=== PATIENT | female | born 1970 | race Two or more races ===

== ENCOUNTER 2025-03-07 09:15 | Outpatient (OUT) | payer OTHER, MEDICAID, SELFPAY ==
--- NOTE | 2025-03-07 09:55 | MM_ITS ---
Patient Name: LEROY DE JESUS MR#: [id number] : 1970 Exam Date: 03/07/2025 Ordering Doctor: [facility] REPORT PROCEDURE: MM TOMOSYNTHESIS SCREENING BI COMPARISON: MG MAMM LT DIAG FU, 02/06/2024. MG MAMM LAKIA DIAG W CAD, 04/04/2023. INDICATIONS: screening mammogram for malignant neooplasm Calculator Name NCI Breast Cancer Risk Assessment Tool 5 Year Breast Cancer Risk 0.90% Lifetime Breast Cancer Risk 6.60% Personal Breast Cancer No Personal Ovarian Cancer No Treatments None Family Cancers Grandmother-maternal with breast cancer at age 52; Mother with cervical cancer at age 45. LOCATION: [facility] BREAST COMPOSITION: There are scattered areas of fibroglandular density. FINDINGS: RIGHT BREAST: There is a 7 mm focal asymmetry centrally in the right breast in the middle depth 5.8 cm from the nipple at the 12 o'clock position appeared scattered benign-appearing calcifications are present. LEFT BREAST: No significant suspicious finding. Benign-appearing calcifications are present. DIAGNOSTIC CATEGORY 0--INCOMPLETE: NEED ADDITIONAL IMAGING EVALUATION. RECOMMENDATIONS: ADDITIONAL MAMMOGRAPHIC VIEWS REQUIRED: RIGHT BREAST - follow-up with spot compressed views of the right breast and ultrasound if necessary is recommended. Sign report Dictated by: Oscar Handley MD on 03/07/2025 at 12:49 Approved by: Oscar Handley MD on 03/07/2025 at 13:11
== END 2025-03-07 09:16 | disposition home or self-care (01) ==
DX: Z12.31 Encounter for screening mammogram for malignant neoplasm of breast (principal); E11.40 Type 2 diabetes mellitus with diabetic neuropathy, unspecified; Z79.4 Long term (current) use of insulin; G47.33 Obstructive sleep apnea (adult) (pediatric); G62.9 Polyneuropathy, unspecified; I10 Essential (primary) hypertension; Z80.3 Family history of malignant neoplasm of breast; Z80.8 Family history of malignant neoplasm of other organs or systems; R92.8 Other abnormal and inconclusive findings on diagnostic imaging of breast
CPT/HCPCS: 77063; 77067

== ENCOUNTER 2025-04-29 08:55 | Outpatient (OUT) | payer OTHER, MEDICAID, SELFPAY ==
--- OUTSIDE RECORDS SUMMARY | 2025-04-16 19:09 | XMS_ITS | Continuity of Care Document ---
Author Organization [facility] Address [address] [place] [address] Phone Care Team Providers Care Commercial Marketing Specialist Name Role Phone Heather Garcia DO Primary Care Provider [phone] Heather Garcia DO Attending Provider [phone] Momo Cee MD Attending Provider Care Teams Patient Care Team Team Status: Active Member Role/Relationship Status Dates Heather Garcia DO Primary Care Provider Active Visit Care Team Team Status: Inactive Member Role/Relationship Status Dates Heather Garcia DO Primary Care Provider Active Start: February 24, 2025 End: February 24, 2025Heather Garcia DOAttscott ProviderActiveStart: February 24, 2025 End: February 24, 2025 Visit Care Team Team Status: Inactive Member Role/Relationship Status Dates Heather Garcia DO Primary Care Provider Active Start: April 16, 2025 End: April 16, 2025StRadha Ferrara ProviderActiveStart: April 16, 2025 End: April 16, 2025 Visit Care Team Team Status: Inactive Member Role/Relationship Status Dates Heather Garcia DO Primary Care Provider Active Start: April 16, 2025 End: April 16, 2025StRadha Ferrara ProviderActiveStart: April 16, 2025 End: April 16, 2025 Chief Complaint and Reason for Visit Chief Complaint Admit Date MCAWV February 24, 2025 2: 18pm Reason for Visit Admit Date CAD (coronary artery disease) February 2:18pm Essential hypertension February 24, 2025 2:18pm Hearing loss February 24, 2025 2: 18pm Medicare annual wellness visit, initial February 24, 2025 2:18pm Neuropathy February 24, 2025 2: 18pm PACHECO (obstructive sleep apnea) February 2:18pm Type 2 diabetes mellitus February 24 2:18pm Chronic stable angina April 16 1:57pm Essential hypertension April 16 1:57pm Hyperlipidemia April 16, 2025 1:57pm Occlusive coronary artery disease Novemb er 2024 1:57pm Type 2 diabetes mellitus April 16, 2025 1:57pm Health Concerns Concerns Start Date Continued weight management and exercise trajectory. Class II angina with known [employer]. Patient would be a candidate for yearly cardiac rehabilitation Allergies, Adverse Reactions, Alerts Allergen Type Severity Reaction Last Updated Verified Status acetaminophen Allergy Unknown anaphylaxis March 232024 2:03pm Yes Active oxycodone Allergy Unknown anaphylaxis March 2:03pm Yes Active pork derived (porcine) Allergy Unknown boils and fever April 16, 2025 2:03pm Yes Active Social History Smoking Status Status Start Date End Date Date of Observa tion Ex-smoker (finding) April 16, 2025 2:14pm Observation Status Observation Response Date of Response Legal Sex Female (finding) Sex Assigned At BirthFemalebary 1970 Family History Relationship Condition Age at Onset Recorded Date/T qi father Family history of lung cancer Unknown Diabetes mellitusUnknownDeceasedUnknownMalignant neoplasmUnknownfamily member Family history of other conditionUnknowngrandparentMalignant neoplasm of breast UnknownmotherHypertensionUnknownHeart diseaseUnknownDiabetes mellitusUnknown History of strokeUnknown Problems Active Problems Problem Diagnosis/Recorded Date Onset Date Stat us Medicare annual wellness visit, initial February 24 025 2:48pm Unknown Active PACHECO (obstructive sleep apnea) August 08, 2023 2:33pm Unknown Active Pain of left breast January 19, 2024 8:26am Unknown Active Hearing loss February 24, 2025 2:28pm Unknown Act conrad Dietary counseling and surveillance March 07, 2024 6:09am Unknown Active Type 2 diabetes mellitus January 19, 2024 8:26am Unkn own Active CAD (coronary artery disease) August 08, 2023 2:33pm Unknown Active Psychophysiologic insomnia August 08, 2023 2:41pm Unk nown Active Dermatitis January 19, 2024 8:58am Unknown Act conrad Hyperlipidemia August 08, 2023 2:33pm Unknown Ac tive Neuropathy August 08, 2023 2:33pm Unknown Acti ve Restless leg syndrome August 08, 2023 2:40pm Unknown Active Essential hypertension August 08, 2023 2:33pm Unknown Active Chronic stable angina August 08, 2023 2:35pm Unknown Active Abnormal mammogram March 11, 2025 7:05am Unknown Active History of stroke August 08, 2023 2:35pm Unknown Active Occlusive coronary artery disease April 16, 2025 2:44pm Unknown Active Medications Medication Status Dose Units Route Directions Qty Days Refills S tart Date Stop Date End Date Reason(s) Instructions Adherence Dulaglutide (Trulicity) 4.5 mg/0.5 mL pen injector Discontinued 4.5 MG SUBCUT every week 2 5March 2023 11:00pmAugust 2023 5:54pmMetformin 500 mg tablet Dcmzimlxrbgh525DDWEKpjak tplhw7636Krob 2023 1:55pmOctober 2023 8:44am Prazosin 1 mg capsuleDiscontinued0.ROUTE.BHQNHUE733Pomlgw 5th, 2024 10:33am February 22, 2024 8:44amTAKE 1 TABLET BY MOUTH ONCE DAILY AT BEDTIMEAtorvastatin 80 mg tabletDiscontinued0.ROUTE.PBKWPQU727Lngknz 2023 10:33amOct2023 8:44amTAKE 1 TABLET BY MOUTH ONCE DAILYPioglitazone 45 mg tablet Lbnlvnnwfwcz27OAJUIgvvy173Ifxiqj 26th, 2024 7:05amNovember 2023 12:18pm Metformin 500 mg sszuewFfvurz585UESKPozfd vwwnk7431Euuhpdm 3rd, 2024 8:44am UnknownPrazosin 1 mg capsuleDiscontinued0.ROUTE.SWZMIPB171Ftcdmng 2023 8:44amJanuary 2024 9:11amTAKE 1 TABLET BY MOUTH ONCE DAILY AT BEDTIME Atorvastatin 80 mg tabletActive0.ROUTE.WWROAEZ742Hfidfhj 2023 8:44amTAKE 1 TABLET BY MOUTH ONCE DAILYUnknownPioglitazone 45 mg viouttQfpvolvmshda49OJGN Gglon931Olptjide 2023 12:18pmMay 2024 9:44amPrazosin 1 mg capsule Discontinued0.ROUTE.RROKPSU915Umchhlx 2024 9:11amApril 2024 6:38amTAKE 1 TABLET BY MOUTH ONCE DAILY AT BEDTIMEInsulin Glargine (Lantus Solostar U-100 Insulin) 100 unit/mL (3 mL) insulin bpkPyzmuckjygki55DTDDAHZYDNMrwxr200Iesdw 2024 12:02pmApril 2024 6:48amPrazosin 1 mg capsuleDiscontinued0.ROUTE .SGZCGAA729Giecd 2024 6:38amJuly 2024 11:17amTAKE 1 TABLET BY MOUTH ONCE DAILY AT BEDTIMEErtugliflozin (Steglatro) 15 mg oyeoqtVemccq75NIYCZqhir921 September 10, 2024 6:47amUnknownInsulin Glargine (Lantus Solostar U-100 Insulin) 100 unit/mL (3 mL) insulin ixvPglhzvdsudqi91ODUUVQHUALLhabw273Cyvnt 2024 6:48amApril 2024 7:06amInsulin Degludec (Tresiba Flextouch U-100) 100 unit/mL (3 mL) insulin qurMfiwvxmzqsdi10CKVGOZYICIBglmw999Pxjju 2024 11:00pmApril 2024 12:31pmInsulin Degludec (Tresiba Flextouch U-100) 100 unit/mL (3 mL) insulin oczGhqozqbuxexe14AKXPMIVLPETiqqp448Gisoj 2024 12:28pmOctober 2024 2:30pmPioglitazone 45 mg dhphubUwxwyvucagpi90YLYMDignx 900May 2024 9:44amJuly 2024 12:22pmPrazosin 1 mg capsuleDiscontinued0 .ROUTE.BMQORPL849Inns 2024 11:17amSeptember 2024 6:23amTAKE 1 TABLET BY MOUTH ONCE DAILY AT BEDTIMEPioglitazone 45 mg lokgbkLudenivbjzet50SXIQRzygk11 0July 2024 12:22pmOctober 2024 7:11amPrazosin 1 mg capsule Discontinued0.ROUTE.EJXTDAA486Viooqwgie 2024 6:23amOctober 2024 7:11amTAKE 1 TABLET BY MOUTH ONCE DAILY AT BEDTIMEPioglitazone 45 mg tablet Dgwgya52IUCOHzrfv450Ndqsmtf 2024 7:11amUnknownPrazosin 1 mg capsuleActive0 .ROUTE.HJMVUCN536Gexbhis 2024 7:11amTAKE 1 TABLET BY MOUTH ONCE DAILY AT BEDTIMEUnknownInsulin Aspart U-100 (Novolog Flexpen U-100 Insulin) 100 unit/mL (3 mL) insulin mvtMzeosv6RMVCSBXOMAIikmi times yqhdp415Gotocrfe2024 9:43am with meals only.UnknownInsulin Degludec (Tresiba Flextouch U-100) 100 unit/mL (3 mL) insulin uqyIvtroj03LRFLUPSODAGgvnp554Tiwamrlu 6th, 2025 9:43amUnknown Tirzepatide (Mounjaro) 2.5 mg/0.5 mL pen injectorActive2.5MGSUBCUTevery weekApril 07, 2025 12:00amfor 4 weeksUnknownGabapentin 300 mg juyyvvmYldufy253 MGPOThree times mkelb93427QilwwmedApril 07, 2025 4:23pmRestless legs syndrome Restless legs syndromeUnknownInsulin Aspart U-100 (Novolog Flexpen U-100 Insulin) 100 unit/mL (3 mL) insulin obuQftuqdfzoofz4ALMFUJHGPIEnrhp times daily 153Oct2024 11:00pmNov2024 9:43amwith meals only.Pen Needle, Diabetic 32 gauge x 5/32 needleActive0.IKHMRHESL4827Edkosyi 5th, 2025 11:00pm use to administer insulin 4 x dailyInsulin Degludec (Tresiba Flextouch U-100) 100 unit/mL (3 mL) insulin opcWmjcnyiieble65JUJEFCSRNMDhatl086Yhzpabc 2024 2:29pmNovember 2024 9:43amMetoprolol Succinate 25 mg tablet extended release 24 fxMikkag93KPVEHhlmYgppxuta 2024 12:00amUnknownAspirin (Adult Aspirin Regimen) 81 mg tablet,delayed release (DR/EC)Pgvwof43ZACLCkzwnUsygk 2023 11:00pmUnknownAtorvastatin 80 mg rfnnboTcaaqndjwvmv70TPXKDxymrAbwir 2023 11:00pmMay 2023 1:40pmErtugliflozin (Steglatro) 15 mg tablet Ddegpctjrekh79BDPQPhsblSdnpa 2023 11:00pmApril 2024 6:48amEzetimibe 10 mg otwbgsNglrdi96MWEHUheyaZyfty 2023 11:00pmUnknownGabapentin 300 mg ybfkeovIdnkjyrntqoy559NHLTYpseb times dailyAdena Health System 2023 11:00pmAdena Health System 2023 2:43pmInsulin Glargine (Lantus Solostar U-100 Insulin) 100 unit/mL (3 mL) insulin penDiscontinuedUNITSUBCUWestern Reserve Hospital 2023 11:00pmAulovelace medical centert 2023 8:17amLisinopril 5 mg kfunkeKoipsg4DEWGPdxxxPpacz 2023 11:00pmUnknown Metformin 500 mg ijxcfwAlunbzfkgcgr111DLQCFzvub dailyAdena Health System 2023 11:00pm December 18, 2023 1:56pmRanolazine 1,000 mg tablet extended release 12 hrActiveMG POMnoland hospital [facility] 2023 11:00pmUnknownNitroglycerin 0.3 mg tablet, sublingualActive 0.3MGSUBLINGUALevery 5 to 15 minutes as neededAdena Health System 2023 11:00pmUnknown Pioglitazone 45 mg dxbwuwKualdqhnhpdj53LCWDEwwziYpjvu 2023 11:00pmAugust 2023 7:06amGabapentin 300 mg zcnmtduHeezwybqyvxs6YFVctdh times dailyMarch 2023 2:42pmMarch 2023 2:45pmRestless legs syndrome Restless legs syndromeone in am, one in afternoon, and two an hour before bed orally three times daily;Gabapentin 300 mg ohgckdgKtezvicnfjrx3NPUiabd times jfulx562214Tzdow 2023 2:44pmOctober 2024 1:56pmRestless legs syndrome Restless legs syndromeone in am, one in afternoon, and two an hour before bed orally three times daily;Insulin Glargine (Lantus Solostar U-100 Insulin) 100 unit/mL (3 mL) insulin nnwXdmzzatchhrs11JIWYMVOWWIXsibqIdlumm 2023 8:17am July 22, 2024 12:02pmPrazosin 1 mg qoqenrnOihtwxkezimg3EMDLXfnvp at bedtimeMay 2023 11:00pmMay 2023 1:40pmFreeTextSi capsule at bedtime Orally Once a day; Note: Source Status: Taking; Provider: Jose Romero ( )Atorvastatin 80 mg unjcdhCmexyfrhsdbw24SJKLRknbi940Sso 31st, 2024 1:39pmAugust 2023 10:33amPrazosin 1 mg xmokipdHalytobqimwe2LGSYCjare at ajfqcly284Cav 2023 1:39pmAugust 2023 10:33amDulaglutide (Trulicity) 0.75 mg/0.5 mL pen injectorDiscontinued0.75MGSUBCUTevery wjku77Vpdxqf 2023 11:00pmOctober 2024 1:55pmEvolocumab (Repatha Sureclick) 140 mg/mL pen injectorDiscontinuedMGSUBCUTAugust 2023 11:00pmOctober 2024 1:56pm Immunizations Immunization Event Date Not Given Reason Dose Number Document Design Specialist Lot Number Reason(s) Given Vaccine Information Statement (VIS) Detail Administration Location COVID-19 mRNA Bivalent Booster (Moderna) Daria el 2021 Pneumococcal Conjugate Vaccine, 20 [facility]entNov[facility] 2022Quadrivalent InfluenzaNovbanner [facility] medical [facility] 2022Tetanus, Diphtheria, Pertussis (Tdap)March 13, 2023 Relevant Diagnostic Tests and/or Laboratory Data Laboratory Results Test Collection Date/Time Result Date/Time Result Interpretation Reference Range Result Comment Performing Site Bedside Hemoglobin A1c February 24, 2025 2:03pm February 2:03pm 14.1 % Vital Signs Vital Reading Result Reference Range Collection Date/Time Height 60 [in_i] February 24, 2025 1:00loBzclnp385.87 kgOctbapt[facility] 2024 1:31pmHeart Rate85 /min 60-100Octbaptist health [facility] 2024 1:31pmRespiratory rate18 /zoj91-60Uytulib 2024 1:31pmOxygen saturation by Pulse anzkhcpc71 %95-100[facility] 2024 1:31pmBP Xfstzjsi429 mm[Hg]100-140Octbaptist [facility] 2024 1:31pmBP Jhzkdggnh28 mm[Hg]60-100 February 24, 2025 1:31pmBMI (Body Mass Index)44.7 kg/q1Jcewwyv 2024 1:31pm Iaufwg04 [in_i]April 16, 2025 2:88umGizbgs875.87 kgN[facility] 2024 2:02pmHeart Rate91 /iqi38-379Opphhbln 26th, 2025 2:02pmRespiratory rate18 /min 12-24[facility] 2024 2:02pmOxygen saturation by Pulse nbiriixo149 %95-100 April 16, 2025 2:02pmBP Zpzermit894 mm[Hg]100-140Nov2024 2:02pm BP Vqelmmmgd41 mm[Hg]60-100[facility] 2024 2:02pmBMI (Body Mass Index)44.7 kg/g2Zrptgtpl 2024 2:02pm Advance Directives Advance Directive Response Recorded Date/ Time Advance Directives No June 09, 2023 4:08pm Insurance Providers Guarantor Digna Hoangmargo Address [address] [place] [id number] Info.Home Phone: Payer Group Member ID Coverage Type Subscriber Relationship to Subscriber Effective Date Expiration Date Medicaid [id number] A Fraide Id: [id number] [address] [facility] [address] Home Phone: Email: [email or web address] Medicaid [id number] A Fraide Id: [id number] [address] [facility] [address] Home Phone: Email: [email or web address] Encounters Encounter Location(s) Arrival/Admit Date Discharge/Departure Date Discharge/Departure Disposition Provider(s) Departed Physician/ Provider Office Visit -[facility] [place] February 24, 2025 2:18pm February 24, 2025 3:30pm Discharged to home care or self care (routine discharge) Heather Garcia DO Departed Physician/ Provider [facility] April 16, 2025 1:57pm April 16, 2025 2:43pm Discharged to home care or self care (routine discharge) Anna Everett MD Departed Clinical -EKG Cardiology April 16, 2025 1:58pm April 16, 2025 1:59pm Discharged to home care or self care (routine discharge) Anna Everett MD Recent Diagnosis Onset Date Admit Date CAD (coronary artery disease) Unknown Oc tober 2024 2:18pm Essential hypertension Unknown February 242024 2:18pm Hearing loss Unknown February 24 2:18pm Medicare annual wellness visit, initial Unknown February 24, 2025 2:18pm Neuropathy Unknown February 24 2:18pm PACHECO (obstructive sleep apnea) Unknown Oc tober 2024 2:18pm Type 2 diabetes mellitus Unknown February 24, 2025 2:18pm Chronic stable angina Unknown March 232024 1:57pm Essential hypertension Unknown April 16, 2025 1:57pm Hyperlipidemia Unknown April 16, 1:57pm Occlusive coronary artery disease Unknown April 16, 2025 1:57pm Type 2 diabetes mellitus Unknown Daria el 2024 1:57pm Assessments Author [facility] 2:46pm1. 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 Anatomy unknown at this point. Currently CCS 2 2. Patient clinically euvolemic and well compensated. NYHA Ib 3. Aggressive dyslipidemia on triple therapy for lipid lowering with Zetia atorvastatin and Repatha. 4. Blood pressure currently to goal for baseline level of CHD risk 5. Insulin requiring diabetes mellitus. 6. Morbid obesity Plan of Treatment Author Heather Garcia [facility] 2024 2:51pmShe is requesting new figure clerk, previously followed with akhil reyes. well controlled, continue lisinopril 5mg stopped gabapentin on her own, using a homemade mg spray which is working well, she would like to stay off gabapentin for htis. Continues to use CPAP. very uncontrolled, 14.1 in office, has not been seen in over 1 year, at that time it was >14. She was on 4.5mg Trulicity-did not like so stopped it. Does not want another GLP1. Is doing Tresebia 48 U at night, will continue that and add 5 U of novolog with each meal, asked to call in 2 weeks with a sugar report and will likely increase at that time. She is in agreement with plan today, continue stegltro, actos, metformin. We will see how much progress we can make, she may need DM specialist. She will follow in 3 months for repeat a1c. is requesting hearing reval. Will update labs, they requested them to go to [place]. Is agreeable to [facility], will send to [place]. She is agreeable to [facility]. Does not qualify for LDCT. Not of age yet for DEXA. Up to date with PAP. We did not discuss vaccines at this visit. has had prevnar 20 and tdap. unknown shingles -will discuss next visit. Author Momo Cee [facility] 2024 2:46pmRisk stratification studies indicated and recommended: 1. Echocardiogram 2. Pharmacologic stress with nuclear myocardial SPECT perfusion imaging. If no high risk findings or active ischemia noted on perfusion imaging we will plan to enroll patient in phase 2 monitored cardiac rehabilitation. Diagnosis class II angina pectoris Will obtain recent lipid numbers and titrate patient's lipid-lowering therapy accordingly Clinical follow-up in 6 weeks or sooner if clinically indicated Future Tests Future scheduled test information is unavailable Pending Tests Test Name Ordered Date Scheduled Date Comprehensive Metabolic Panel February 24, 2025 2:25pm MM screening mammo BI w/CADOctober 2024 2:25pmECH echo transthoracic April 16, 2025 2:42pm Future Visits Future appointment information is unavailable Future Procedures Procedure Name Ordered Date Scheduled Date Complete Blood Count Auto Diff February 24, 2025 2:25pm Lipid PanelOctober 2024 2:25pmMicroAlb Creat Ratio,UOctober 2024 2:25pmVit. B12/Folate ProfileOctober 2024 2:25pmSTR cardiac stress/lexiscan April 16, 2025 2:42pmFPG ECG *CARDIOLOGY ONLY*April 16, 2025 1:58pm April 16, 2025 1:58pm Future Medications Future medication information is unavailable Patient Instructions Patient instructions are unavailable
--- NOTE | 2025-04-29 09:01 | MM_ITS ---
Patient Name: LEROY DE JESUS MR#: [id number] : 1970 Exam Date: 04/29/2025 Ordering Doctor: [facility] REPORT PROCEDURE: MM TOMOSYNTHESIS DIAGNOSTIC RT, 04/29/2025, 08:54 US BREAST RT LIMITED, 04/29/2025, 09:37 COMPARISON: MM TOMOSYNTHESIS SCREENING BI, 03/07/2025. MG MAMM LT DIAG FU, 02/06/2024. MG MAMM LAKIA DIAG W CAD, 04/04/2023. INDICATIONS: Abnormal Mammogram Calculator Name NCI Breast Cancer Risk Assessment Tool 5 Year Breast Cancer Risk 0.90% Lifetime Breast Cancer Risk 6.60% Personal Breast Cancer No Personal Ovarian Cancer No Treatments None Family Cancers Grandmother-maternal with breast cancer at age 52; Mother with cervical cancer at age 45. LOCATION: [facility] BREAST COMPOSITION: There are scattered areas of fibroglandular density. FINDINGS: RIGHT BREAST: The previous focal asymmetry in the right breast partially dissipates on spot compressed images possibly relating to summation of fibroglandular tissue. Vascular calcifications are present. Limited right breast ultrasound: There is scattered fibroglandular tissue within the right breast in the region of mammographic abnormality. No evidence of mass, cyst, architectural distortion, or atypical calcification . DIAGNOSTIC CATEGORY 3--PROBABLY BENIGN FINDING. THE FOLLOWING FINDING(S) HAS A HIGH PROBABILITY OF A BENIGN ETIOLOGY: RECOMMENDATIONS: SHORT TERM FOLLOW-UP DIAGNOSTIC MAMMOGRAM RIGHT BREAST IN 6 MONTHS. Dictated by: Oscar Handley MD on 04/29/2025 at 09:59 Approved by: Oscar Handley MD on 04/29/2025 at 10:02
== END 2025-04-29 08:56 | disposition home or self-care (01) ==
LOC: MAMMO 08:55
DX: R92.8 Other abnormal and inconclusive findings on diagnostic imaging of breast (principal); Z80.3 Family history of malignant neoplasm of breast; Z80.8 Family history of malignant neoplasm of other organs or systems
CPT/HCPCS: 76642; 77065; G0279